=== PATIENT | male | born 1995 | race Caucasian/White ===

== ENCOUNTER 2016-09-21 09:17 | Emergency (ER) | payer OTHER ==
[~2016-09-21] VITALS: Ht 170.2 cm; Wt 65.8 kg
[2016-09-21 09:18] VITALS: BP 149/75
[2016-09-21] MEDS ORDERED: FLON1SPR (10:49)
[2016-09-21] MEDS ORDERED: MUCI600T34 PO (10:49)
== END 2016-09-21 11:01 | disposition home or self-care (01) ==
LOC: M ED 10:10
DX: J00 Acute nasopharyngitis [common cold] (principal)

== ENCOUNTER 2017-01-17 17:00 | Emergency (ER) | payer OTHER ==
[~2017-01-17] VITALS: Ht 170.2 cm; Wt 65.9 kg
[~2017-01-17 17:00] MED LIST: FLON1SPR; MUCI600T37 PO
[2017-01-17] MEDS ORDERED: FLAG500T PO (18:44)
[2017-01-17] MEDS ORDERED: CIPR-249 PO (18:44)
[2017-01-17] MEDS ORDERED: IBUP-1022 PO (18:44)
[2017-01-17] MEDS ORDERED: CIPROFLOXACIN 500 MG TAB PO ONE (18:45)
[2017-01-17] MEDS ORDERED: metroNIDAZOLE (FLAGYL) 500 MG TAB PO ONE (18:45)
[2017-01-17] MEDS ORDERED: IBUPROFEN 800 MG TAB PO ONE (18:45)
[2017-01-17 18:55] VITALS: BP 139/71
[2017-02-21] MEDS ORDERED: LIAL1.2T PO (14:11)
== END 2017-01-17 19:33 | disposition home or self-care (01) ==
LOC: M ED 17:00
DX: K92.1 Melena (principal)

== ENCOUNTER 2017-01-27 12:46 | Emergency (ER) | payer OTHER ==
[~2017-01-27] VITALS: Ht 170.2 cm; Wt 65.9 kg
[~2017-01-27 12:46] MED LIST changes: +CIPR-249 PO; +FLAG500T PO; +IBUP-1022 PO
[2017-01-27] MEDS ORDERED: METOCLOPRAMIDE INJ 10MG/2ML VIAL (J2765) IV ONE (14:30)
[2017-01-27] MEDS ORDERED: NS 1,000 ML IV ONE (14:30)
[2017-01-27 14:56] LABS: BASO # 0.1 10^3/uL (0.0-0.2); BASO % 0.8 % (0.0-1.0); EOS # 0.4 10^3/uL (0.0-0.50); EOS % 4.9 % (0.0-3.0); IMMATURE GRANULOCYTE % 0.3 % (0-0); LYMPH # 1.7 10^3/uL (1.5-6.5); LYMPH % 22.8 % (24.0-44.0); MEAN CORPUSCULAR HEMOGLOBIN 31.4 pg (27.0-33.0); MEAN CORPUSCULAR HGB CONC 35.1 g/dl (32.0-36.5); MEAN CORPUSCULAR VOLUME 89.5 fl (80.0-96.0); MONO # 0.6 10^3/uL (0.0-0.8); MONO % 8.4 % (0.0-5.0); NEUTROPHILS # 4.8 10^3/uL (1.8-7.7); NEUTROPHILS % 62.8 % (36.0-66.0); PLATELET COUNT, AUTOMATED 266 10^3/uL (150-450); RED CELL DISTRIBUTION WIDTH 11.8 % (11.5-14.5); WHITE BLOOD COUNT 7.6 10^3/uL (4.0-10.0)
[2017-01-27 15:06] LABS: INR 1.16
[2017-01-27 15:17] LABS: ALBUMIN/GLOBULIN RATIO 1.43 (1.00-1.93); ALKALINE PHOSPHATASE 57 U/L (45-117); ALT/SGPT 34 U/L (12-78); AMYLASE 65 U/L (25-115); ANION GAP 8 MEQ/L (8-16); AST/SGOT 23 U/L (15-37); BILIRUBIN,DIRECT 0.1 MG/DL (0.0-0.2); BILIRUBIN,TOTAL 0.3 MG/DL (0.2-1.0); BLOOD UREA NITROGEN 18 MG/DL (7-18); CALCIUM LEVEL 9.2 MG/DL (8.5-10.1); CARBON DIOXIDE LEVEL 28 MEQ/L (21-32); CHLORIDE LEVEL 104 MEQ/L (98-107); CREATININE FOR GFR 0.92 MG/DL (0.70-1.30); GLOMERULAR FILTRATION RATE > 60.0 (>60); GLUCOSE, FASTING 73 MG/DL (70-105); SODIUM LEVEL 140 MEQ/L (136-145); TOTAL PROTEIN 6.8 GM/DL (6.4-8.2)
[2017-01-27] MEDS ORDERED: PROT1TAB2 PO (16:01)
[2017-01-27] MEDS ORDERED: PANTOPRAZOLE 40MG INJ (PROTONIX) (C9113) IV ONE (16:15)
[2017-01-27 16:49] VITALS: BP 122/69
[2017-02-21] MEDS ORDERED: LIAL1.2T PO (14:11)
== END 2017-01-27 16:49 | disposition home or self-care (01) ==
LOC: M ED 12:46
DX: K92.1 Melena (principal); R10.9 Unspecified abdominal pain; Z79.899 Other long term (current) drug therapy
CPT/HCPCS: 80048; 80076; 82150; 83690; 85025; 85610; 85730; 86850; 86900; 86901; 87507; 96374; 96375; 99284; C9113; J2765

== ENCOUNTER 2017-02-22 11:51 | Day surgery (SDC) | payer OTHER ==
[~2017-02-22] VITALS: Ht 170.2 cm; Wt 63.5 kg
[~2017-02-22 11:51] MED LIST changes: +LIAL1.2T PO; +PROT1TAB2 PO
[2017-02-22] MEDS ORDERED: NS 1,000 ML IV ONE (12:00)
[2017-02-22] MEDS ORDERED: PROPOFOL 200 MG/20 ML VIAL As Ordered ONE (12:57)
--- NOTE | 2017-02-22 13:38 | ROOR ---
Patient Name: Jerry Graham Procedure Date: 02/22/2017 1:06 PM Date of : 1995 Age: 21 Room: [facility] Gender: Male Note Status: Finalized Procedure: Total Colonoscopy to Cecum + Ileoscopy + Bx. Indications: Clinically significant diarrhea of unexplained origin, Rectal bleeding Providers: Christian Jaramillo MD Referring MD: ABHI SAAVEDRA MD Requesting Provider: Medicines: Monitored Anesthesia Care Complications: No immediate complications. Procedure: Pre-Anesthesia Assessment: - The heart rate, respiratory rate, oxygen saturations, blood pressure, adequacy of pulmonary ventilation, and response to care were monitored throughout the procedure. The Colonoscope was introduced through the anus and advanced to the cecum, identified by appendiceal orifice and ileocecal valve. The colonoscopy was performed without difficulty. The patient tolerated the procedure well. The quality of the bowel preparation was excellent. Findings: The perianal and digital rectal examinations were normal. Inflammation characterized by congestion (edema), erythema, granularity, loss of vascularity and mucus was found in a continuous and circumferential pattern from the anus to the rectum, from the anus to the sigmoid colon and from the anus to the descending colon. The descending colon, the splenic flexure, the transverse colon, the hepatic flexure, the ascending colon and the cecum were spared. This was moderate in severity, and when compared to previous examinations, the findings are new. Biopsies were taken with a cold forceps for histology. Inflammation from rectum to 30 cms. From 30 cms to the Cecum was normal. The terminal ileum appeared normal. The exam was otherwise without abnormality. Impression: - Left-sided ulcerative colitis. Inflammation was found from the anus to the rectum, from the anus to the sigmoid colon and from the anus to the descending colon. This was moderate in severity. The findings are new compared to previous examinations. Biopsied. - The examined portion of the ileum was normal. - The examination was otherwise normal. - The exam was otherwise normal to the cecum. Recommendation: - Patient has a contact number available for emergencies. The signs and symptoms of potential delayed complications were discussed with the patient. Return to normal activities tomorrow. Written discharge instructions were provided to the patient. - Discharge patient to home. - Continue present medications. - Await pathology results. - Telephone GI clinic for pathology results in 1 week. - Repeat colonoscopy for surveillance based on pathology results. - Use prednisone 20 mg PO once a day. - Return to my office in 2 weeks. - Check Portal Online for Path Results.([email or web address] - The findings and recommendations were discussed with the patient's family. Christian Jaramillo MD Christian Jaramillo MD 02/22/2017 1:38:08 PM This report has been signed electronically. Number of Addenda: 0 Note Initiated On: 02/22/2017 1:06 PM Estimated Blood Loss: Estimated blood loss: none.
[2017-02-22 13:55] VITALS: BP 126/61
== END 2017-02-22 14:20 | disposition home or self-care (01) ==
LOC: M OPP 11:51
PROVIDERS: ATTEND Internal Medicine Gastroenterology
DX: K62.5 Hemorrhage of anus and rectum (principal); R19.7 Diarrhea, unspecified; R14.0 Abdominal distension (gaseous); K51.511 Left sided colitis with rectal bleeding; Z91.048 Other nonmedicinal substance allergy status; Z79.899 Other long term (current) drug therapy; Z80.0 Family history of malignant neoplasm of digestive organs